=== PATIENT | female | born 1990 | race Caucasian/White ===

== ENCOUNTER 2017-01-21 19:02 | Emergency (ER) | payer SELFPAY ==
[~2017-01-21] VITALS: Ht 160 cm; Wt 68.0 kg
[~2017-01-21 19:02] MED LIST: CYCL5TAB PO; NITR100C62 PO
[2017-01-21 19:27] VITALS: BP 121/69
[2017-01-21] MEDS ORDERED: CEPH-264 PO (19:34)
[2017-01-21] MEDS ORDERED: NAPR500T PO (19:34)
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
== END 2017-01-21 19:42 ==
LOC: ER 19:02
DX: T21.22XA Burn of second degree of abdominal wall, initial encounter (principal); T31.0 Burns involving less than 10% of body surface; X08.8XXA Exposure to other specified smoke, fire and flames, initial encounter; W40.8XXA Explosion of other specified explosive materials, initial encounter; Y93.89 Activity, other specified; Y92.89 Other specified places as the place of occurrence of the external cause; Y99.8 Other external cause status
CPT/HCPCS: 99283

== ENCOUNTER 2018-02-12 20:28 | Observation (INO) | payer OTHER ==
[2018-02-12 20:49] LABS: BILIRUBIN,URINE NEGATIVE (NEG); CLARITY,URINE CLEAR; COLOR,URINE YELLOW; GLUCOSE,URINE NEGATIVE (NEG); NITRITE,URINE NEGATIVE (NEG); PH,URINE 6.5; PROTEIN,URINE NEGATIVE (NEG-TRACE); UROBILINOGEN,URINE 0.2 mg/dL (0.2 mg/dL)
[2018-02-12 20:53] LABS: RBC,URINE RARE /HPF (0-2)
[2018-02-12 20:54] LABS: BACTERIA,URINE FEW /HPF (0-FEW); SQUAMOUS EPITHELIAL CELL,UR FEW /LPF
[2018-02-12 20:56] LABS: BARBITURATES NEG (NEG); BENZODIAZEPINES NEG (NEG); CANNABINOIDS POS (NEG); COCAINE NEG (NEG); METHADONE NEG (NEG); OPIATES NEG (NEG); PHENCYCLIDINE NEG (NEG)
[2018-02-12 20:58] LABS: AMPHETAMINE/METHAMPHETAMINE NEG (NEG); ETHANOL, URINE NEG (NEG)
[2018-02-12] MEDS ORDERED: IV RINGERS,LACTATED 1000ML 1,000 ML IV (21:00)
[2018-02-12] MEDS: ACETAMINOPHEN 325 MG TABLET. PO (21:56)
[2018-02-12] MEDS: hydrOXYzine PAMOATE 25 MG CAPSULE PO (21:57)
== END 2018-02-12 22:20 | disposition home or self-care (01) ==
LOC: 3 SO LND 20:28
DX: O26.892 Other specified pregnancy related conditions, second trimester (principal); R10.30 Lower abdominal pain, unspecified; Z79.899 Other long term (current) drug therapy; Z3A.20 20 weeks gestation of pregnancy
CPT/HCPCS: 80307; 81001; G0378; G0379; Q0177